=== PATIENT | female | born 1960 | race Caucasian/White ===

== ENCOUNTER 2016-11-14 13:44 | Emergency (ER) | payer OTHER ==
[2016-11-14 14:00] VITALS: BP 139/59
--- NOTE | 2016-11-14 14:06 | EDM.PDOC ---
[id number]: IRREGULAR HEART BEAT Time Seen by Provider: 11/14/16 13:55 Source of Information: Reports: Patient, Provider History Limitations: Reports: No limitations - History of Present Illness INITIAL COMMENTS - FREE TEXT/NARRATIVE: 56-year-old female sent to the ED from [facility]. She was there to see Margarita Forbes called today regarding dyspnea and palpitations. A recent she has been diagnosed with developing hyperthyroidism after many years of taking thyroid supplementation for hypothyroidism. She has had recent assessment by spring maker from [place] indicating that she has hypervascularity to the thyroid gland with enlargement of the thyroid lobes as well as the isthmus suggesting an acute thyroiditis. She has positive levels of antithyroid peroxidase greater than 1000. Thyroid antibodies were also strongly positive. She is therefore no longer on thyroid supplementation. It is seems to be developing more signs symptoms of hyperthyroidism. She's not aware of what her last TSH free T4 free T3 values were. Due to the palpitations she had an ECG done at the clinic which did reveal occasional PAC`s but also suggested ST segment elevation in leads 3 and aVF concerning for possible inferior wall myocardial infarction. Patient has had previous angiogram and failure of ability to stand a single artery stenosis. She therefore underwent cardiac bypass surgery on one vessel in about 2007 or . She came in which vessel. She is no chest pain. She feels mildly short of breath. Aware of palpitations but does not Messerly rare for her. She has a history of paroxysmal atrial fibrillation in the past which is when her thyroid abnormalities were identified. ECG done in the ED reveals ST segment elevation in leads 3 and aVF but there is a diffuse early repolarization pattern throughout suggesting fictitious elevation of leads 3 and aVF. Is also poor R-wave progression T-wave inversion V1 and V2. Rhythm is otherwise sinus and 62 per minute. There is mild ST segment depression in lead aVL. Palpitations recently have been associated with mild lightheadedness feeling suggesting several ectopic beats and row. Symptom Onset Date: 11/11/16 (Patient's for many weeks but worse the last 3 days.) Timing/Duration: Reports: Day(s): ( has been having palpitations off and on for several weeks. Worse the last 3 days. Associated increasing dyspnea on exertion. ), Week(s): Severity: moderate Location, General: Reports: chest - Related Data Allergies/ADRs: Allergies Allergy/AdvReac Type Severity Reaction Status Date / Time celecoxib [From Celebrex] Allergy Diarrhea Verified 11/14/16 14:00 Penicillins Allergy Dizziness Verified 11/14/16 14:00 Home Meds: Home Meds Acetaminophen/HYDROcodone [[place] 325-5 MG] 1 tab PO DAILY 11/14/16 [History] Aspirin 81 mg PO DAILY 11/14/16 [History] Cyclobenzaprine [Flexeril] 5 mg PO DAILY 11/14/16 [History] Fexofenadine [Farrah] 180 mg PO DAILY 11/14/16 [History] Gabapentin [Gralise] 600 mg PO TID 11/14/16 [History] Ibuprofen [Advil] 400 mg PO BID 11/14/16 [History] Metoprolol Tartrate 150 mg PO BID 11/14/16 [History] Montelukast [Singulair] 10 mg PO DAILY 11/14/16 [History] Multivitamin [Multivitamins] 1 tab PO DAILY 11/14/16 [History] Ranitidine HCl [Zantac] 300 mg PO DAILY 11/14/16 [History] Ubidecarenone [Co Q-10] 200 mg PO DAILY 11/14/16 [History] atorvaSTATin [Lipitor] 20 mg PO DAILY 11/14/16 [History] Past Medical History Cardiovascular History: Reports: CAD (Had one very stenotic vessel that was unable to be stented. She therefore underwent open heart surgery with bypass repair of one vessel in about 2007.), High cholesterol, Hypertension, SOB on exertion. Denies: Stents Gastrointestinal History: Reports: GERD Musculoskeletal History: Reports: Back pain, chronic, Osteoarthritis (Gatorade on her lower back and her knees.) Endocrine/Metabolic History: Reports: Diabetes, type II, Hyperthyroidism (Has been hypothyroid for many years but over the last 6 months to a year TSH had been continually dropping and therefore medication was being reduced until she is off medication totally and is now exhibiting signs symptoms of hyperthyroidism or Graves' disease. 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 Anti-peroxidase antibodies were greater than 1000. Thyroid antibodies were greater than 6.1. These were checked 2 weeks ago by endocrinology.), Obesity/BMI 30+ (Borderline. She is not on medication only diet.) - Past Surgical History GI Surgical History: Reports: Appendectomy, Cholecystectomy Neurological Surgical History: Reports: Lumbar spine (Laminectomy and discectomy.) Musculoskeletal Surgical History: Reports: Arthroscopic procedure (Right ankle with removal of broken pieces of cartilage.), Knee replacement (Bilateral) Oncologic Surgical History: Reports: None Social & Family History - Tobacco Use Smoking Status *Q: Former Smoker - Living Situation & Occupation Living situation: Reports: single Occupation: employed [employer] GENERAL - Review of Systems Review Of Systems: See Below Constitutional: Reports: malaise, weakness, fatigue. Denies: fever, chills, weight loss HEENT: Reports: No symptoms Respiratory: Reports: Shortness of Breath. Denies: Wheezing, Pleuritic Chest Pain (On exertion) Cardiovascular: Reports: Blood pressure problem, Dyspnea on exertion, Lightheadedness, Palpitations. Denies: Chest pain, Claudication (Mild hypertension), Orthopnea (Occasionally.) Endocrine: Reports: fatigue GI/Abdominal: Denies: Abdominal pain : Reports: no symptoms Musculoskeletal: Reports: back pain (Previous L. spine surgery for disc disease. ), joint pain (Knees and hips. Also right ankle.) Skin: Reports: no symptoms Neurological: Reports: No Symptoms Psychiatric: Reports: No symptoms Hematologic/Lymphatic: Reports: no symptoms Immunologic: Reports: no symptoms ED EXAM, GENERAL - Physical Exam Exam: See Below Exam Limited By: No limitations General Appearance: alert, WD/WN, no apparent distress Eye Exam: bilateral eye: normal inspection, proptosis (No proptosis appreciated. ) Throat/Mouth: Normal inspection, Normal lips, Normal oropharynx Head: atraumatic, normocephalic Neck: normal inspection, supple, non-tender, full range of motion, thyromegaly ( Palpable both lobes of the fire gland and the isthmus. Both are firm with a rubbery consistency. Mildly enlarged.). No: lymphadenopathy (L), lymphadenopathy (R) Respiratory/Chest: no respiratory distress, lungs clear, normal breath sounds, no accessory muscle use Cardiovascular: normal peripheral pulses, regular rate, rhythm, no edema, no gallop, no murmur, other (Well healed midline sternotomy incision.) Peripheral Pulses: 2+: posterior tibial (L), posterior tibial (R), dorsalis pedis (L), dorsalis pedis (R) GI/Abdominal: normal bowel sounds, soft, non tender, no organomegaly, other ( Large midline laparotomy wound. Fairly she had cholecystectomy and appendectomy done at one setting.) Back Exam: normal inspection, full range of motion, other (Midline lumbar spine surgery scar noted.). No: CVA tenderness (L), CVA tenderness (R) Extremities: normal inspection, normal range of motion, non-tender, no pedal edema, normal capillary refill Neurological: alert, oriented, CN II-XII intact, normal cognition, normal gait, other (No tremor.) Psychiatric: normal affect, normal mood Skin Exam: Warm, Dry, Intact, Normal color, No rash EKG INTERPRETATION EKG Date: 11/14/16 Time: 13:50 Rhythm: NSR Rate (beats/min): 62 [place]: normal P-wave: present QRS: other (Poor R-wave progression from leads V3 to V6.) ST-T: other (There is a diffuse early repolarization pattern. This leads to slight elevation of the ST segment in leads 3 and aVF suggestive of ischemia. There is mild ST segment depression in aVL. There are T-wave inversions in leads V1 V2 again and never nonspecific finding.) QT: prolonged (Mildly prolonged.) Course - Vital Signs Last Recorded V/S: Last Vital Signs Temp 36.6 C 11/14/16 13:54 Pulse 66 11/14/16 13:54 Resp 15 11/14/16 13:54 BP 139/59 L 11/14/16 13:54 Pulse Ox 98 11/14/16 13:54 - Orders/Labs/Meds Labs: Laboratory Tests 11/14/16 11/14/16 11/14/16 Range/Units 14:15 14:15 14:15 WBC 8.36 (3.98-10.04) K/mm3 RBC 4.47 (3.98-5.22) M/mm3 Hgb 12.3 (11.2-15.7) gm/L Hct 38.4 (34.1-44.9) % MCV 85.9 (79.4-94.8) fl MCH 27.5 (25.6-32.2) pg MCHC 32.0 L (32.2-35.5) g/dl RDW Std Deviation 43.7 (36.4-46.3) fL Plt Count 261 (182-369) K/mm3 MPV 9.6 (9.4-12.3) fl Neutrophils % (Manual) 62 H (40-60) % Band Neutrophils % 0 (0-10) % Lymphocytes % (Manual) 31 (20-40) % Atypical Lymphs % 0 % Monocytes % (Manual) 3 (2-10) % Eosinophils % (Manual) 4 (0.7-5.8) % Basophils % (Manual) 0 L (0.1-1.2) Platelet Estimate Adequate RBC Morph Comment Normal Sodium 139 (136-145) mEq/L Potassium 4.2 (3.5-5.1) mEq/L Chloride 104 (98-107) mEq/L Carbon Dioxide 29 (21-32) mEq/L Anion Gap 10.2 (5-15) BUN 23 H (7-18) mg/dL Creatinine 0.9 (0.55-1.02) mg/dL Est Cr Clr Drug Dosing 67.07 mL/min Estimated GFR (MDRD) > 60 (>60) mL/min BUN/Creatinine Ratio 25.6 H (14-18) Glucose 227 H (74-106) mg/dL Calcium 9.1 (8.5-10.1) mg/dL Magnesium 1.9 (1.8-2.4) mg/dl Total Bilirubin 0.4 (0.2-1.0) mg/dL AST 21 (15-37) U/L ALT 41 (14-59) U/L Alkaline Phosphatase 141 H (46-116) U/L CK-MB (CK-2) < 0.5 (0-3.6) ng/ml Troponin I < 0.017 (0.00-0.056) ng/mL B-Natriuretic Peptide 147 H (0-100) pg/mL Total Protein 7.1 (6.4-8.2) g/dl Albumin 3.1 L (3.4-5.0) g/dl Globulin 4.0 gm/dL Albumin/Globulin Ratio 0.8 L (1-2) Free T4 1.24 (0.76-1.46) ng/dL TSH 3rd Generation < 0.007 L (0.358-3.74) uIU/mL - Radiology Interpretation Free Text/Narrative:: 56-year-old female presents to the ED for evaluation of an abnormal ECG. She does not have any chest pain. Concern was ECG done at the clinic revealed or suggested an acute myocardial infarction in the inferior wall. However I my assessment there appears to be an early repolarization pattern diffusely which is leading to fictitious mild elevation of the ST segment in leads 3 and aVF. However there is also slight ST segment depression in aVL and therefore she will require cardiac workup. She has a history of previous stenosis of one of her coronaries that was not amenable to stenting and she required open heart surgery with a single bypass about 2007. Recent echo does not suggest any abnormal wall motion or ischemic areas. She went to the clinic primarily because of increasing dyspnea and palpitations. She has an interesting history of being hypothyroid for many years and over the last year requiring less and less thyroid supplementation and now developing signs and symptoms of hyperthyroidism or Graves' disease. Recent antithyroid antibodies were positive at greater than 6.1 and antithyroid peroxidase antibodies were greater than thousand. She is therefore not on any supplementation. She is awaiting to see how bad hyperthyroidism symptoms developed when asked whether or not she will require therapy for this. Currently she is not on any medication for hyperthyroidism. Plan one view chest x-ray will be done. Routine labs including magnesium and TSH and free T4 free T3 will be done. She does have the occasional PAC I believe only one on ECG done at the clinic and 9 on the ECG obtained in the ER. She has no tremor. And heart rate is actually in the 60s. Note she is on metoprolol 100 mg 3 times a day.. - Re-Assessments/Exams Free Text/Narrative Re-Assessment/Exam: 11/14/16 14:37 chest x-ray done portably appears to be magnified. This suggests moderate cardiomegaly. Mild vascular congestion. 11/14/16 15:15: Labs are back and reveal a normal white count at 8.36 with 60% neutrophils no band cells. Hemoglobin is 12.3 slightly low. Hematocrit is 38.4. Plan is normal 261,000. Chemistry shows a sodium of 139 potassium of 4.2. The weight is 23 glucose was 227. BUN/creatinine ratio is 25.6 indicating a little bit volume depleted. Alk phosphatase 141. BNP was 147 TSH is basically zero is less than 0.007. Free T4 is 1.24 normal in our lab is 0.76-1.76. Free T3 is a send out and is pending. Results will likely be available on Thursday. Troponin was less than 0.017 and CK-MB was less than 0.5. Patient will therefore be discharged to home. Concern is that she is definitely hyperthyroid it will be the expertise of the spring maker as to when she needs intervention to correct hyperthyroid state. Palpitations are likely to worsen over time as she becomes more hyperthyroid. The high-dose metoprolol is probably preventing most of the palpitations or PACs from occurring. Apparently she has not going to be scheduled to be seen until March. Work is supposed to be done the end of November for thyroid function studies. I don't have a comparison TSH at this time. Therefore the free T3 is important. If it is markedly elevated when it returns then intervention is likely required on a more urgent basis. I believe the proposed treatment would be iodine radioablation. Departure - Departure Time of Disposition: 15:31 Disposition: Home, Self-Care 01 Condition: good Clinical Impression: Palpitations, Hyperthyroidism determined by thyroid function test Instructions: Hyperthyroidism, Palpitations, [id number] Referrals: Margarita Forbes [employer]IAL SCIENCE TEACHER [Primary Care Provider] - Forms: ED Department Discharge Additional Instructions: Evaluation in the emergency room today in regards to assessment for abnormal ECG which suggested acute myocardial infarction. Also noted increased palpitations. Therefore complete cardiac workup was carried out and did not reveal any evidence of heart attack. Cardiac markers are completely normal. ECG is skewed by a early repolarization pattern throughout. This makes it look normal in the inferior leads. The only the occasional premature atrial contraction was appreciated while on the monitor. Thyroid function studies did reveal a TSH that is essentially zero it was less than 0.007 which means it's not in not measurable. The free T4 is still within the normal limit range. Free T3 is pending. These results will help endocrinology decide whether or not her thyroid did disease is worsening and he is going to need treatment. Watchful waiting for another 3-4 weeks versus earlier intervention will depend on the free T3 value. Free T3 was sent out and should be available by Thursday next week. Please follow up with Margarita Forbes in this regard. At this time you're free to return to work as per your normal. Continue all current medications as you were before.
--- NOTE | 2016-11-14 15:31 | CR ---
Chest: Portable view of the chest was obtained. Comparison: Previous chest x-ray of 10/03/10. Heart size and mediastinum are within normal limits for portable technique. Sternotomy wires are seen. Lungs are clear. Bony structures are grossly intact. Impression: 1. Nothing acute is identified on portable chest x-ray. Diagnostic code #1
== END 2016-11-14 15:45 | disposition home or self-care (01) ==
LOC: JD.ED 13:44
DX: R00.2 Palpitations (principal); E05.90 Thyrotoxicosis, unspecified without thyrotoxic crisis or storm; I10 Essential (primary) hypertension; I25.810 Atherosclerosis of coronary artery bypass graft(s) without angina pectoris; E78.00 Pure hypercholesterolemia, unspecified; E11.9 Type 2 diabetes mellitus without complications; E66.9 Obesity, unspecified; Z68.30 Body mass index [BMI] 30.0-30.9, adult; Z90.49 Acquired absence of other specified parts of digestive tract; Z98.890 Other specified postprocedural states; Z96.653 Presence of artificial knee joint, bilateral; Z79.82 Long term (current) use of aspirin; Z79.899 Other long term (current) drug therapy; Z88.0 Allergy status to penicillin; Z88.8 Allergy status to other drugs, medicaments and biological substances
CPT/HCPCS: 36415; 71010; 71010-26; 80053; 82553; 83735; 83880; 84439; 84443; 84481; 84484; 85025; 93005; 99284; 99285-25

== ENCOUNTER 2017-02-02 06:19 | Emergency (ER) | payer OTHER ==
[2017-02-02] MEDS ORDERED: Ondansetron 4 MG/2 ML SDV IVPUSH ONE (07:07)
[2017-02-02] MEDS ORDERED: HYDROmorphone 1 MG/ML Syringe IVPUSH ONE (07:07)
[2017-02-02] MEDS ORDERED: Sodium Chloride 0.9% 1,000 ML IV SCH ×2 (07:15→08:36)
[2017-02-02] MEDS: Sodium Chloride 0.9% 10 ML Syringe FLUSH PRN ×2 (07:24→12:01)
[2017-02-02 08:02] VITALS: BP 109/95
--- NOTE | 2017-02-02 08:02 | EDM.PDOC ---
ED HPI GENERAL MEDICAL PROBLEM - General Chief Complaint: Flank Pain Stated Complaint: LEFT SIDE PAIN Time Seen by Provider: 02/02/17 07:00 Source of Information: Reports: Patient, RN Notes Reviewed - History of Present Illness INITIAL COMMENTS - FREE TEXT/NARRATIVE: 56-year-old lady comes in with left lower abdominal pain. She had onset of this discomfort last evening. The pain is much worse this morning. Is primarily in the left lower abdomen without radiation. Pain is worse with motion. She did have a large BM last evening which was normal when the discomfort started. He has had no vomiting or diarrhea. She does not feel nauseated at this time. No chest pain or difficulty breathing. No apparent fever or chills. No voiding symptomatology. History of prior appendectomy. Left Flank Pain Score (Numeric/FACES): 9 - Related Data Allergies Allergy/AdvReac Type Severity Reaction Status Date / Time celecoxib [From Celebrex] Allergy Diarrhea Verified 11/14/16 14:00 Penicillins Allergy Dizziness Verified 11/14/16 14:00 Home Meds: Home Meds Aspirin 81 mg PO DAILY 11/14/16 [History] Fexofenadine [Farrah] 180 mg PO DAILY PRN 11/14/16 [History] Gabapentin [Gralise] 600 mg PO TID 11/14/16 [History] Ibuprofen [Advil] 400 mg PO BID 11/14/16 [History] Metoprolol Tartrate 150 mg PO BID 11/14/16 [History] Montelukast [Singulair] 10 mg PO DAILY PRN 11/14/16 [History] Ranitidine HCl [Zantac] 300 mg PO DAILY PRN 11/14/16 [History] atorvaSTATin [Lipitor] 20 mg PO DAILY 11/14/16 [History] Hydrocodone/Acetaminophen [[place] 5-325 Tablet] 1 each PO Q6HR PRN #14 tablet [Rx] Levofloxacin [Levaquin] 500 mg PO Q24H #7 tablet 02/02/17 [Rx] Ondansetron [Zofran ODT] 4 mg PO Q8H PRN #7 tab.dis 02/02/17 [Rx] atorvaSTATin [Lipitor] 20 mg PO BEDTIME 02/02/17 [History] Past Medical History HEENT History: Reports: Impaired Vision Cardiovascular History: Reports: CAD, High Cholesterol, Hypertension, SOB on Exertion Gastrointestinal History: Reports: GERD Musculoskeletal History: Reports: Back Pain, Chronic, Osteoarthritis Endocrine/Metabolic History: Reports: Diabetes, Type II, Hyperthyroidism, Obesity/BMI 30+ - Past Surgical History Cardiovascular Surgical History: Reports: Coronary Artery Bypass GI Surgical History: Reports: Appendectomy, Cholecystectomy Neurological Surgical History: Reports: Lumbar Spine Musculoskeletal Surgical History: Reports: Arthroscopic Procedure, Knee Replacement Oncologic Surgical History: Reports: None Social & Family History - Family History Cardiac: Reports: Heart Valve Replacement, [place] - Tobacco Use Smoking Status *Q: Never Smoker Second Hand Smoke Exposure: No - Caffeine Use Caffeine Use: Reports: None - Recreational Drug Use Recreational Drug Use: No - Living Situation & Occupation Living situation: Reports: Single Occupation: Employed ED ROS GENERAL - Review of Systems Review Of Systems: See Below Constitutional: Denies: Fever, Chills, Diaphoresis HEENT: Reports: No Symptoms Respiratory: Denies: Shortness of Breath Cardiovascular: Denies: Chest Pain GI/Abdominal: Reports: Abdominal Pain. Denies: Constipation, Diarrhea, Hematochezia, Melena, Nausea, Vomiting : Reports: No Symptoms Musculoskeletal: Reports: No Symptoms Skin: Reports: No Symptoms Neurological: Reports: No Symptoms ED EXAM, GI/ABD - Physical Exam Exam: See Below General Appearance: Alert, Mild Distress Eyes: Bilateral: Normal Appearance, EOMI Throat/Mouth: Normal Inspection, Normal Oropharynx Head: Atraumatic. No: Facial Swelling Neck: Supple, Full Range of Motion Respiratory/Chest: No Respiratory Distress, Lungs Clear, Normal Breath Sounds Cardiovascular: Regular Rate, Rhythm GI/Abdominal Exam: Soft, Tender (Moderate localized tenderness left lower abdomen) Back Exam: No: CVA Tenderness (L), CVA Tenderness (R), Paraspinal Tenderness Extremities: Normal Inspection. No: Leg Pain Neurological: Alert, Oriented, No Motor/Sensory Deficits Skin Exam: Warm, Dry, Normal Color Course - Vital Signs Last Recorded V/S: Last Vital Signs Temp 97 F 02/02/17 06:23 Pulse 60 02/02/17 08:01 Resp 26 H 02/02/17 06:23 BP 109/95 H 02/02/17 08:01 Pulse Ox 87 L 02/02/17 08:01 - Orders/Labs/Meds Orders: Active Orders 24 hr Category Date Time Status Peripheral IV Care [RC] . DIRECTED Care 02/02/17 07:08 Active Peripheral IV Insertion Adult [OM.PC] Stat Oth 02/02/17 07:07 Ordered Labs: Laboratory Tests 02/02/17 02/02/17 02/02/17 Range/Units 06:30 06:30 06:30 WBC 12.78 H (3.98-10.04) K/mm3 RBC 4.88 (3.98-5.22) M/mm3 Hgb 13.6 (11.2-15.7) gm/L Hct 41.7 (34.1-44.9) % MCV 85.5 (79.4-94.8) fl MCH 27.9 (25.6-32.2) pg MCHC 32.6 (32.2-35.5) g/dl RDW Std Deviation 43.0 (36.4-46.3) fL Plt Count 290 (182-369) K/mm3 MPV 10.2 (9.4-12.3) fl Neut % (Auto) 76.9 H (34.0-71.1) % Lymph % (Auto) 13.1 L (19.3-51.7) % [place] % (Auto) 6.8 (4.7-12.5) % Eos % (Auto) 2.8 (0.7-5.8) Baso % (Auto) 0.2 (0.1-1.2) % Neut # (Auto) 9.83 H (1.56-6.13) K/mm3 Lymph # (Auto) 1.67 (1.18-3.74) K/mm3 [place] # (Auto) 0.87 H (0.24-0.36) K/mm3 Eos # (Auto) 0.36 (0.04-0.36) K/mm3 Baso # (Auto) 0.02 (0.01-0.08) K/mm3 Sodium 140 (136-145) mEq/L Potassium 4.3 (3.5-5.1) mEq/L Chloride 104 (98-107) mEq/L Carbon Dioxide 28 (21-32) mEq/L Anion Gap 12.3 (5-15) BUN 20 H (7-18) mg/dL Creatinine 0.9 (0.55-1.02) mg/dL Est Cr Clr Drug Dosing 69.57 mL/min Estimated GFR (MDRD) > 60 (>60) mL/min BUN/Creatinine Ratio 22.2 H (14-18) Glucose 125 H (74-106) mg/dL Calcium 9.6 (8.5-10.1) mg/dL Total Bilirubin 0.5 (0.2-1.0) mg/dL AST 18 (15-37) U/L ALT 25 (14-59) U/L Alkaline Phosphatase 154 H (46-116) U/L C-Reactive Protein 1.2 H* (<1.0) mg/dL Total Protein 7.8 (6.4-8.2) g/dl Albumin 3.3 L (3.4-5.0) g/dl Globulin 4.5 gm/dL Albumin/Globulin Ratio 0.7 L (1-2) Lipase 178 (73-393) U/L Urine Color (Yellow) Urine Appearance (Clear) Urine pH (5.0-8.0) Ur Specific [place] (1.005-1.030) Urine Protein (Negative) Urine Glucose (UA) (Negative) Urine Ketones (Negative) Urine Occult Blood (Negative) Urine Nitrite (Negative) Urine Bilirubin (Negative) Urine Urobilinogen (0.2-1.0) Ur Leukocyte Esterase (Negative) Urine RBC (0-5) /hpf Urine WBC (0-5) /hpf Ur Epithelial Cells (0-5) /hpf Urine Bacteria (FEW) /hpf Urine Mucus (FEW) /hpf 02/02/17 Range/Units 08:10 WBC (3.98-10.04) K/mm3 RBC (3.98-5.22) M/mm3 Hgb (11.2-15.7) gm/L Hct (34.1-44.9) % MCV (79.4-94.8) fl MCH (25.6-32.2) pg MCHC (32.2-35.5) g/dl RDW Std Deviation (36.4-46.3) fL Plt Count (182-369) K/mm3 MPV (9.4-12.3) fl Neut % (Auto) (34.0-71.1) % Lymph % (Auto) (19.3-51.7) % [place] % (Auto) (4.7-12.5) % Eos % (Auto) (0.7-5.8) Baso % (Auto) (0.1-1.2) % Neut # (Auto) (1.56-6.13) K/mm3 Lymph # (Auto) (1.18-3.74) K/mm3 [place] # (Auto) (0.24-0.36) K/mm3 Eos # (Auto) (0.04-0.36) K/mm3 Baso # (Auto) (0.01-0.08) K/mm3 Sodium (136-145) mEq/L Potassium (3.5-5.1) mEq/L Chloride (98-107) mEq/L Carbon Dioxide (21-32) mEq/L Anion Gap (5-15) BUN (7-18) mg/dL Creatinine (0.55-1.02) mg/dL Est Cr Clr Drug Dosing mL/min Estimated GFR (MDRD) (>60) mL/min BUN/Creatinine Ratio (14-18) Glucose (74-106) mg/dL Calcium (8.5-10.1) mg/dL Total Bilirubin (0.2-1.0) mg/dL AST (15-37) U/L ALT (14-59) U/L Alkaline Phosphatase (46-116) U/L C-Reactive Protein (<1.0) mg/dL Total Protein (6.4-8.2) g/dl Albumin (3.4-5.0) g/dl Globulin gm/dL Albumin/Globulin Ratio (1-2) Lipase (73-393) U/L Urine Color Yellow (Yellow) Urine Appearance Clear (Clear) Urine pH 7.0 (5.0-8.0) Ur Specific [place] 1.020 (1.005-1.030) Urine Protein Negative (Negative) Urine Glucose (UA) Negative (Negative) Urine Ketones Negative (Negative) Urine Occult Blood Trace-intact H (Negative) Urine Nitrite Negative (Negative) Urine Bilirubin Negative (Negative) Urine Urobilinogen 0.2 (0.2-1.0) Ur Leukocyte Esterase Negative (Negative) Urine RBC 0-5 (0-5) /hpf Urine WBC 0-5 (0-5) /hpf Ur Epithelial Cells 0-5 (0-5) /hpf Urine Bacteria Few (FEW) /hpf Urine Mucus Not seen (FEW) /hpf Meds: Medications Discontinued Medications Generic Name Dose Route Start Last Admin Trade Name [place] PRN Reason Stop Dose Admin Diatrizoate Meglum/Diatrizoate Sod 120 ml 02/02/17 08:16 02/02/17 09:18 Gastrografin 37% PO 02/02/17 08:17 90 ml ONETIME ONE Administration Hydromorphone HCl 0.5 mg 02/02/17 07:07 02/02/17 07:20 Dilaudid IVPUSH 02/02/17 07:08 0.5 mg ONETIME ONE Administration Hydromorphone HCl 0.5 mg 02/02/17 09:30 02/02/17 09:34 Dilaudid IVPUSH 02/02/17 09:31 0.5 mg ONETIME ONE Administration Hydromorphone HCl 0.5 mg 02/02/17 10:10 02/02/17 10:22 Dilaudid IVPUSH 02/02/17 10:11 0.5 mg ONETIME ONE Administration Sodium Chloride 1,000 mls @ 999 mls/hr 02/02/17 07:15 02/02/17 07:22 Normal Saline IV 999 mls/hr ONETIME BRIANNA Administration Sodium Chloride Confirm 02/02/17 08:36 02/02/17 09:36 Normal Saline Administered 02/02/17 08:37 Not Given Dose 1,000 mls @ as directed .ROUTE .STK-MED ONE Sodium Chloride 1,000 mls @ 150 mls/hr 02/02/17 08:36 02/02/17 08:36 Normal Saline IV 150 mls/hr ASDIRECTED BRIANNA Administration Levofloxacin/Dextrose 750 mg/ 150 mls @ 100 mls/hr 02/02/17 10:10 02/02/17 10 :24 Premix IV 02/02/17 11:39 100 mls/hr ONETIME ONE Administration Iopamidol 150 ml 02/02/17 08:16 02/02/17 09:19 Isovue-300 (61%) IVPUSH 02/02/17 08:17 125 ml ONETIME ONE Administration Ketorolac Tromethamine 30 mg 02/02/17 11:45 02/02/17 12:00 Toradol IVPUSH 30 mg ONETIME BRIANNA Administration Ondansetron HCl 4 mg 02/02/17 07:07 02/02/17 07:22 Zofran IVPUSH 02/02/17 07:08 4 mg ONETIME ONE Administration Sodium Chloride 10 ml 02/02/17 07:07 02/02/17 12:01 Saline Flush FLUSH 10 ml ASDIRECTED PRN Administration Keep Vein Open Sodium Chloride 10 ml 02/02/17 08:16 02/02/17 09:20 Saline Flush FLUSH 10 ml ONETIME PRN Administration IV FLUSH - Re-Assessments/Exams Free Text/Narrative Re-Assessment/Exam: 02/02/17 08:04 White blood count mildly elevated at over 12,000. She feels better after 0.5 mg Dilaudid IV but still has pain left lower abdomen and still quite tender left lower abdomen. Concerned about early diverticulitis. Will CT abdomen to rule this in or out. Departure - Departure Time of Disposition: 11:25 Disposition: Home, Self-Care 01 Condition: Fair Clinical Impression: Colitis - Discharge Information Prescriptions: Hydrocodone/Acetaminophen [[place] 5-325 Tablet] 1 each PO Q6HR PRN #14 tablet PRN Reason: Pain Levofloxacin [Levaquin] 500 mg PO Q24H #7 tablet Ondansetron [Zofran ODT] 4 mg PO Q8H PRN #7 tab.dis PRN Reason: Nausea/Vomiting Instructions: Colitis Referrals: Margarita Forbes NP [Primary Care Provider] - Forms: ED Department Discharge, ED Return to Work/School Form Additional Instructions: Your CAT scan today shows inflammation of a segment of your colon compatible with colitis. We have given you your first dose of antibiotic IV. Continue the Levaquin with your next dose tomorrow and continue that daily until gone. You may take Tylenol for mild to moderate discomfort or the hydrocodone pain pill if needed for more severe pain. Do not drive or work when taking hydrocodone. Zofran if needed for nausea or vomiting. Is recommended you not work until Thursday. It is also recommended you follow-up with your regular medical provider later this week. Call clinic for appointment. Return to ED as needed if symptoms worsening in any way - My Orders Last 24 Hours: My Active Orders 02/02/17 07:07 Peripheral IV Insertion Adult [OM.PC] Stat 02/02/17 07:08 Peripheral IV Care [RC] . DIRECTED - Assessment/Plan Last 24 Hours: My Active Orders 02/02/17 07:07 Peripheral IV Insertion Adult [OM.PC] Stat 02/02/17 07:08 Peripheral IV Care [RC] . DIRECTED
[2017-02-02] MEDS ORDERED: Diatrizoate Meglumine/Diatrizoate Sodium 37% 120 ML Bottle PO ONE (08:16)
[2017-02-02] MEDS ORDERED: Iopamidol 612 MG/ML 150 ML Bottle IVPUSH ONE (08:16)
[2017-02-02] MEDS ORDERED: Sodium Chloride 0.9% 10 ML Syringe FLUSH PRN (08:16)
[2017-02-02] MEDS ORDERED: Sodium Chloride 0.9% 1,000 ML ONE (08:36)
[2017-02-02] MEDS ORDERED: HYDROmorphone 0.5 MG/0.5 ML Syringe IVPUSH ONE ×2 (09:30→10:10)
--- NOTE | 2017-02-02 09:43 | CT ---
CT abdomen and pelvis Technique: Multiple axial sections were obtained from above the dome of the diaphragm inferiorly through the pubic symphysis. Intravenous and oral contrast was utilized. Delayed images were obtained through the bladder. Comparison: No previous CT abdomen or pelvis exam. Findings: Focal bowel wall thickening is seen within the proximal descending colon. Hazy inflammatory change is seen around this finding. No diverticuli are seen in this area of the colon with certainty. Visualized lung bases are clear. Liver shows no focal parenchymal abnormality. Surgical clips are seen from prior cholecystectomy. Spleen appears within normal limits. Adrenal glands show no nodule. Pancreas is within normal limits. Aorta shows no aneurysmal dilatation. No retroperitoneal adenopathy or mesenteric abnormalities are seen. Appendix is seen and appears normal in size. No pelvic mass or adenopathy is seen. No free fluid is identified. Impression: 1. Short area of bowel wall thickening noted within the proximal descending colon with minimal surrounding inflammatory change. Findings most likely due to a focal nonspecific colitis although difficult to completely exclude neoplasm given its short segment length. Endoscopy could be considered to further evaluate. 2. Previous cholecystectomy. 3. No additional abnormality is seen on CT study of the abdomen and pelvis. Diagnostic code #3
[2017-02-02] MEDS ORDERED: Levofloxacin/Dextrose 5%-Water 750 MG in Premix Bag 1 BAG IV ONE (10:10)
[2017-02-02] MEDS ORDERED: Ketorolac 30 MG/ML SDV IVPUSH SCH (11:45)
== END 2017-02-02 13:00 | disposition home or self-care (01) ==
LOC: JD.ED 06:19
DX: K52.9 Noninfective gastroenteritis and colitis, unspecified (principal); I25.10 Atherosclerotic heart disease of native coronary artery without angina pectoris; E78.00 Pure hypercholesterolemia, unspecified; I10 Essential (primary) hypertension; K21.9 Gastro-esophageal reflux disease without esophagitis; E11.9 Type 2 diabetes mellitus without complications; E05.90 Thyrotoxicosis, unspecified without thyrotoxic crisis or storm; E66.9 Obesity, unspecified; Z95.1 Presence of aortocoronary bypass graft; Z88.0 Allergy status to penicillin; Z88.8 Allergy status to other drugs, medicaments and biological substances; Z79.82 Long term (current) use of aspirin; Z79.899 Other long term (current) drug therapy; Z90.49 Acquired absence of other specified parts of digestive tract; Z96.659 Presence of unspecified artificial knee joint
CPT/HCPCS: 36415; 74177; 80053; 81001; 83690; 85025; 86140; 96361; 96365; 96366; 96375; 96376; 99284; J1170; J1885; J1956; J2405; J7040; J7050; Q9963; Q9967

== ENCOUNTER 2018-11-30 02:15 | Emergency (ER) | payer OTHER ==
[2018-11-30 02:27] VITALS: BP 135/78
[2018-11-30] MEDS ORDERED: Sodium Chloride 0.9% 1,000 ML IV ONE (02:57)
[2018-11-30] MEDS ORDERED: Ondansetron 4 MG/2 ML SDV IVPUSH ONE (02:57)
[2018-11-30] MEDS ORDERED: HYDROmorphone 1 MG/ML Syringe IVPUSH ONE (02:57)
[2018-11-30] MEDS ORDERED: Dicyclomine 20 MG/2 ML SDV IM ONE (03:02)
--- NOTE | 2018-11-30 03:04 | EDM.PDOC ---
ED HPI GENERAL MEDICAL PROBLEM - General Chief Complaint: Abdominal Pain Stated Complaint: STOMACH PAIN RECENT SURGERY AT [facility] Time Seen by Provider: 11/30/18 02:41 Source of Information: Reports: Patient, RN Notes Reviewed History Limitations: Reports: No Limitations - History of Present Illness INITIAL COMMENTS - FREE TEXT/NARRATIVE: The patient states that she developed generalized crampy abdominal pain and bloody diarrhea a little over 24 hours ago, the evening of 11/28/2018. She has vomited once. No recent fever. No urinary symptoms. She states that she was seen at the [facility] yesterday, where blood work and a CT scan were performed. She was diagnosed with colitis, and prescribed both ciprofloxacin and metronidazole. She has been taking these medicines as prescribed, without relief of symptoms. She is concerned that she may be dehydrated. The patient states that she has had similar symptoms once or twice in the past, including a history of Clostridium difficile about 10 years ago. The patient's PCP is Margarita Forbes. Her orthopedic surgeon is Dr. Fausto Guerra. Bilateral Lower Abdomen Pain Score (Numeric/FACES): 10 - Related Data Allergies Allergy/AdvReac Type Severity Reaction Status Date / Time celecoxib [From Celebrex] Allergy Diarrhea Verified 11/30/18 03:47 Penicillins Allergy Dizziness Verified 11/30/18 03:47 Home Meds: Home Meds Gabapentin [Gralise] 600 mg PO QID 11/14/16 [History] Metoprolol Tartrate 100 mg PO BID 11/14/16 [History] atorvaSTATin [Lipitor] 20 mg PO DAILY 11/14/16 [History] Aspirin 81 mg PO DAILY 11/30/18 [History] Ciprofloxacin HCl [Cipro] 500 mg PO BID 11/30/18 [History] Dicyclomine [Bentyl] 1 tab PO Q6H PRN #20 tablet 11/30/18 [Rx] Gluc HCl/Csa/Pham Hy/Hyalur Ac [Glucosamine Chondroitin] 1 cap PO DAILY [History] Levothyroxine 175 mcg PO DAILY 11/30/18 [History] metFORMIN [Glucophage XR] 500 mg PO BID 11/30/18 [History] metroNIDAZOLE [Metronidazole] 500 mg PO TID 11/30/18 [History] Past Medical History HEENT History: Reports: Impaired Vision Other HEENT History: Wears glasses Cardiovascular History: Reports: CAD, High Cholesterol, Hypertension, [place] (January 2009) Gastrointestinal History: Reports: GERD, Hiatal Hernia 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: Musculoskeletal History: Reports: Back Pain, Chronic, Osteoarthritis Endocrine/Metabolic History: Reports: Diabetes, Type II, Hypothyroidism, Obesity /BMI 30+ - Infectious Disease History Infectious Disease History: Reports: C-Difficile - Past Surgical History Cardiovascular Surgical History: Reports: Coronary Artery Bypass (x 1 vessel, 2009) GI Surgical History: Reports: Appendectomy, Cholecystectomy (in her 20's), EGD ( x 1) Neurological Surgical History: Reports: Lumbar Spine (L4-L5 discectomy) Musculoskeletal Surgical History: Reports: Arthroscopic Procedure (left knee), Knee Replacement (bilateral), Other (See Below) (Right ankle fusion 11/10/2018) Social & Family History - Family History Cardiac: Reports: Heart Valve Replacement, [place] - Tobacco Use Smoking Status *Q: Former Smoker Years of Tobacco use: 5 Packs/Tins Daily: 1 Month/Year Tobacco Last Used: Quit 1984 - Caffeine Use Caffeine Use: Reports: None - Alcohol Use Alcohol Use History: Yes Alcohol Use Frequency: Rarely - Recreational Drug Use Recreational Drug Use: Yes Drug Use in Last 12 Months: No Recreational Drug Type: Reports: Marijuana/Hashish (last smoked as a teenager) - Living Situation & Occupation Living situation: Reports: , Alone Occupation: Employed ([employer]) ED ROS GENERAL - Review of Systems Review Of Systems: ROS reveals no pertinent complaints other than HPI. ED EXAM, GI/ABD - Physical Exam Exam: See Below Exam Limited By: No Limitations General Appearance: Alert, WD/WN, Mild Distress (appears uncomfortable - mostly from attempts at IV access) Eyes: Bilateral: Normal Appearance, EOMI Ears: Normal External Exam, Hearing Grossly Normal Nose: Normal Inspection Throat/Mouth: Normal Inspection, Normal Lips, Normal Voice, No Airway Compromise Head: Atraumatic, Normocephalic Neck: Normal Inspection, Full Range of Motion Respiratory/Chest: No Respiratory Distress, Lungs Clear, Normal Breath Sounds, No Accessory Muscle Use Cardiovascular: Normal Peripheral Pulses, Regular Rate, Rhythm, No Gallop, No JVD, No Murmur, No Rub GI/Abdominal Exam: Normal Bowel Sounds, Soft, Non-Tender, No Organomegaly, No Distention, No Abnormal Bruit, No Mass, Other (Obese) (Female) Exam: Deferred Rectal (Female) Exam: Deferred Back Exam: Normal Inspection, Full Range of Motion, NT Extremities: Normal Capillary Refill, Other (CAM walking boot on right) Neurological: Alert, Oriented, Normal Cognition, No Motor/Sensory Deficits Psychiatric: Normal Affect Skin Exam: Warm, Dry, Intact, Normal Color, No Rash Course - Vital Signs Last Recorded V/S: Last Vital Signs Temp 35.5 C 11/30/18 02:24 Pulse 82 11/30/18 02:24 Resp 20 11/30/18 02:24 BP 135/78 11/30/18 02:24 Pulse Ox 95 11/30/18 02:24 - Orders/Labs/Meds Labs: Laboratory Tests 11/30/18 11/30/18 Range/Units 03:25 03:25 WBC 14.85 H (3.98-10.04) K/mm3 RBC 4.82 (3.98-5.22) M/mm3 Hgb 13.8 (11.2-15.7) gm/L Hct 41.6 (34.1-44.9) % MCV 86.3 (79.4-94.8) fl MCH 28.6 (25.6-32.2) pg MCHC 33.2 (32.2-35.5) g/dl RDW Std Deviation 43.4 (36.4-46.3) fL Plt Count 278 (182-369) K/mm3 MPV 10.3 (9.4-12.3) fl Neutrophils % (Manual) 86 H (40-60) % Band Neutrophils % 0 (0-10) % Lymphocytes % (Manual) 12 L (20-40) % Atypical Lymphs % 0 % Monocytes % (Manual) 2 (2-10) % Eosinophils % (Manual) 0 L (0.7-5.8) % Basophils % (Manual) 0 L (0.1-1.2) Platelet Estimate Adequate RBC Morph Comment Normal Sodium 135 L (136-145) mEq/L Potassium 3.7 (3.5-5.1) mEq/L Chloride 100 (98-107) mEq/L Carbon Dioxide 25 (21-32) mEq/L Anion Gap 13.7 (5-15) BUN 18 (7-18) mg/dL Creatinine 1.0 (0.55-1.02) mg/dL Est Cr Clr Drug Dosing 60.00 mL/min Estimated GFR (MDRD) 57 (>60) mL/min BUN/Creatinine Ratio 18.0 (14-18) Glucose 152 H (74-106) mg/dL Calcium 9.5 (8.5-10.1) mg/dL Magnesium 1.6 L (1.8-2.4) mg/dl Total Bilirubin 0.9 (0.2-1.0) mg/dL AST 16 (15-37) U/L ALT 23 (14-59) U/L Alkaline Phosphatase 121 H (46-116) U/L Total Protein 7.4 (6.4-8.2) g/dl Albumin 3.1 L (3.4-5.0) g/dl Globulin 4.3 gm/dL Albumin/Globulin Ratio 0.7 L (1-2) Meds: Medications Discontinued Medications Generic Name Dose Route Start Last Admin Trade Name Freq PRN Reason Stop Dose Admin Dicyclomine HCl 20 mg 11/30/18 03:02 11/30/18 03:06 Bentyl IM 11/30/18 03:03 20 mg ONETIME ONE Administration Hydromorphone HCl 1 mg 11/30/18 02:57 11/30/18 03:03 Dilaudid IVPUSH 11/30/18 02:58 1 mg ONETIME ONE Administration Sodium Chloride 1,000 mls @ 999 mls/hr 11/30/18 02:57 11/30/18 03:03 Normal Saline IV 11/30/18 03:57 999 mls/hr ONETIME ONE Administration Magnesium Sulfate 2 gm/ Premix 50 mls @ 50 mls/hr 11/30/18 03:54 11/30/18 04: 02 IV 11/30/18 04:53 50 mls/hr ONETIME ONE Administration Ondansetron HCl 4 mg 11/30/18 02:57 11/30/18 03:03 Zofran IVPUSH 11/30/18 02:58 4 mg ONETIME ONE Administration - Re-Assessments/Exams Free Text/Narrative Re-Assessment/Exam: 11/30/18 02:59 Although we do not have access to the CT images that the patient had performed at [place] yesterday, I am going to trust the when she tells me that it was interpreted as colitis. I am not going to repeat a CT scan. I have ordered blood work, along with Dilaudid, Zofran, IM Bentyl, and IV fluid. If she is able to provide a stool sample, I will order stool studies. 11/30/18 03:55 The patient's magnesium level has returned low at 1.6. I have ordered a 2 g Mg- rider. 11/30/18 04:20 The patient's CBC is remarkable for WBC count elevated at 14.85, with 0% bandemia. The remainder of the CBC is unremarkable. The patient's CMP is remarkable for blood glucose modestly elevated at 152, and is otherwise unremarkable. The patient states that she is feeling a lot better, following IV Dilaudid, IV Zofran, and IM Bentyl. She has not been able to provide a stool sample. Once the Mg-rider has finished infusing, she may safely be discharged home. 11/30/18 05:11 The patient's magnesium has finished infusing. I will discharge her home with a prescription for Advil. She may take [id number] loperamide for diarrhea. I am recommending that she withhold the antibiotics until a diagnosis of the cause of her colitis has been made. Departure - Departure Time of Disposition: 05:12 Disposition: Home, Self-Care 01 Condition: Good Clinical Impression: Colitis, Abdominal cramps - Discharge Information *PRESCRIPTION DRUG MONITORING PROGRAM REVIEWED*: Not Applicable *COPY OF PRESCRIPTION DRUG MONITORING REPORT IN PATIENT BLANCHE: Not Applicable Referrals: Margarita Forbes NP [Primary Care Provider] - Forms: ED Department Discharge Additional Instructions: You were seen in the emergency room for generalized abdominal cramps and vomiting, after being diagnosed with colitis yesterday. Workup in the ER included blood work, which found your magnesium level to be low. Your magnesium was replaced through an IV. There are many different types of colitis. Appropriate treatment requires an appropriate diagnosis of which type of colitis you have. You should provide a stool sample to your PCP as soon as possible. Until a diagnosis of which type of colitis you have, we recommend that you not take the antibiotics. You may take [id number] loperamide (Imodium) as directed on the label to treat your diarrhea. Stay adequately hydrated. Avoid juice and milk. A prescription for the anti-spasm medicine Bentyl has been sent to the [facility], located in the [place] [facility] store. Take one tablet of Bentyl up to every 6 hours, as needed for abdominal cramps. If any other problems, please do not hesitate to return to the ER.
[2018-11-30] MEDS ORDERED: Magnesium Sulfate/Water 2 GM in Premix Bag 1 BAG IV ONE (03:54)
== END 2018-11-30 05:28 | disposition home or self-care (01) ==
LOC: JD.ED 02:15
DX: K52.9 Noninfective gastroenteritis and colitis, unspecified (principal); E11.9 Type 2 diabetes mellitus without complications; I25.10 Atherosclerotic heart disease of native coronary artery without angina pectoris; E78.00 Pure hypercholesterolemia, unspecified; I10 Essential (primary) hypertension; I25.2 Old myocardial infarction; K21.9 Gastro-esophageal reflux disease without esophagitis; E03.9 Hypothyroidism, unspecified; Z95.1 Presence of aortocoronary bypass graft; Z88.0 Allergy status to penicillin; Z88.8 Allergy status to other drugs, medicaments and biological substances; Z79.899 Other long term (current) drug therapy; Z87.891 Personal history of nicotine dependence; Z79.84 Long term (current) use of oral hypoglycemic drugs; Z79.82 Long term (current) use of aspirin
CPT/HCPCS: 36415; 80053; 83735; 85007; 85027; 96361; 96365; 96372; 96375; 99284; J0500; J1170; J2405; J3475; J7040

== ENCOUNTER 2024-03-08 11:53 | Emergency (ER) | payer OTHER ==
[2024-03-08] MEDS: Sodium Chloride 0.9% 45 ML IV SCH (12:14)
[2024-03-08] MEDS: Iopamidol 755 Mg/ML 100 ML Bottle IVPUSH ONE (12:14)
[2024-03-08 12:26] LABS: BASOPHILS ABSOLUTE AUTO 0.1 K/mm3 (0.0-0.2); BASOPHILS PERCENT AUTO 0.6 % (0.0-1.0); EOSINOPHILS ABSOLUTE AUTO 0.4 K/mm3 (0.0-0.4); EOSINOPHILS PERCENT AUTO 5.1 % (0.0-6.0); HEMATOCRIT 47.3 % (37.0-47.0); HEMOGLOBIN 15.3 gm/dl (12.0-16.0); IMMATURE GRAN ABSOLUTE AUTO 0.02 K/mm3 (0.00-0.05); IMMATURE GRAN PERCENT AUTO 0.2 % (0.0-0.4); LYMPHOCYTES ABSOLUTE AUTO 2.1 K/mm3 (1.0-4.8); LYMPHOCYTES PERCENT AUTO 26.2 % (24.0-44.0); MEAN CORPUSCULAR HGB CONC 32.3 g/dl (32.0-36.0); MEAN CORPUSCULAR VOLUME 89.6 fl (83.0-99.0); MEAN PLATELET VOLUME 9.8 fl (9.4-12.3); MONOCYTES ABSOLUTE AUTO 0.8 K/mm3 (0.0-0.8); MONOCYTES PERCENT AUTO 9.5 % (0.0-8.0); NEUTROPHILS ABSOLUTE AUTO 4.7 K/mm3 (1.8-7.7); NEUTROPHILS PERCENT AUTO 58.4 % (41.0-71.0); PLATELET COUNT,PLT 264 K/mm3 (150-400); RED BLOOD CELL COUNT 5.28 M/mm3 (4.10-5.30)
[2024-03-08 12:50] LABS: A/G RATIO 0.8 (1-2); ALBUMIN 3.7 g/dl (3.4-5.0); ANION GAP 10.3 (5-15); BILIRUBIN TOTAL 0.4 mg/dL (0.2-1.0); CALCIUM 9.7 mg/dL (8.5-10.1); CREATININE 0.8 mg/dL (0.55-1.02); EST CRCL DRUG DOSING (CG) 70.38 mL/min; POTASSIUM,K 4.3 mEq/L (3.5-5.1); PROTEIN TOTAL,TP 8.2 g/dl (6.4-8.2)
[2024-03-08 12:57] LABS: INR 0.96; PROTHROMBIN TIME 10.2 SECONDS (9.7-12.0)
[2024-03-08 12:58] LABS: PTT,PARTIAL THROMBOPLSTIN TIME 29.3 SECONDS (21.7-31.4)
[2024-03-08 16:07] VITALS: BP 147/92; PULSE 57
== END 2024-03-08 15:55 | disposition home or self-care (01) ==
LOC: JD.ED 11:53
DX: G45.9 Transient cerebral ischemic attack, unspecified (principal); I10 Essential (primary) hypertension; I25.10 Atherosclerotic heart disease of native coronary artery without angina pectoris; I25.2 Old myocardial infarction; E11.9 Type 2 diabetes mellitus without complications; E03.9 Hypothyroidism, unspecified; E66.9 Obesity, unspecified; Z95.1 Presence of aortocoronary bypass graft; Z90.49 Acquired absence of other specified parts of digestive tract; Z79.2 Long term (current) use of antibiotics; Z79.84 Long term (current) use of oral hypoglycemic drugs; Z79.890 Hormone replacement therapy; Z79.82 Long term (current) use of aspirin; Z79.899 Other long term (current) drug therapy; Z88.0 Allergy status to penicillin; Z88.8 Allergy status to other drugs, medicaments and biological substances; Z88.6 Allergy status to analgesic agent; Z68.42 Body mass index [BMI] 45.0-49.9, adult
CPT/HCPCS: 36415; 70450; 70496; 70498; 80053; 82947; 84484; 85025; 85610; 85730; 93005; 99285; J3490; Q9967; 93010

== ENCOUNTER 2024-03-09 08:46 | Emergency (ER) | payer OTHER ==
[2024-03-09] MEDS: Sodium Chloride 0.9% 10 ML Syringe FLUSH PRN (09:17)
[2024-03-09] MEDS: Iopamidol 755 Mg/ML 100 ML Bottle IVPUSH ONE (09:17)
[2024-03-09] MEDS: Sodium Chloride 0.9% 45 ML IV SCH (09:17)
[2024-03-09 09:22] LABS: BASOPHILS PERCENT AUTO 0.5 % (0.0-1.0); EOSINOPHILS ABSOLUTE AUTO 0.3 K/mm3 (0.0-0.4); HEMATOCRIT 46.8 % (37.0-47.0); HEMOGLOBIN 14.8 gm/dl (12.0-16.0); IMMATURE GRAN ABSOLUTE AUTO 0.03 K/mm3 (0.00-0.05); IMMATURE GRAN PERCENT AUTO 0.4 % (0.0-0.4); LYMPHOCYTES ABSOLUTE AUTO 1.7 K/mm3 (1.0-4.8); LYMPHOCYTES PERCENT AUTO 21.8 % (24.0-44.0); MEAN CORPUSCULAR HEMOGLOBIN 28.5 pg (28.0-32.0); MEAN CORPUSCULAR HGB CONC 31.6 g/dl (32.0-36.0); MEAN PLATELET VOLUME 9.7 fl (9.4-12.3); MONOCYTES ABSOLUTE AUTO 0.7 K/mm3 (0.0-0.8); MONOCYTES PERCENT AUTO 9.5 % (0.0-8.0); NEUTROPHILS ABSOLUTE AUTO 4.8 K/mm3 (1.8-7.7); NEUTROPHILS PERCENT AUTO 63.8 % (41.0-71.0); PLATELET COUNT,PLT 264 K/mm3 (150-400); WHITE BLOOD CELL COUNT,WBC 7.56 K/mm3 (3.9-11.3)
[2024-03-09 09:46] LABS: A/G RATIO 0.8 (1-2); ALBUMIN 3.5 g/dl (3.4-5.0); ANION GAP 10.3 (5-15); BILIRUBIN TOTAL 0.4 mg/dL (0.2-1.0); BUN/CREATININE RATIO 24.4 (14-18); CALCIUM 9.7 mg/dL (8.5-10.1); CREATININE 0.9 mg/dL (0.55-1.02); EST CRCL DRUG DOSING (CG) 68.29 mL/min; POTASSIUM,K 4.3 mEq/L (3.5-5.1); PROTEIN TOTAL,TP 7.9 g/dl (6.4-8.2)
[2024-03-09 10:24] LABS: PROTHROMBIN TIME 10.6 SECONDS (9.7-12.0)
[2024-03-09 10:26] LABS: PTT,PARTIAL THROMBOPLSTIN TIME 31.3 SECONDS (21.7-31.4)
[2024-03-09 12:11] VITALS: BP 145/75; PULSE 48
== END 2024-03-09 12:11 | disposition home or self-care (01) ==
LOC: JD.ED 08:46
DX: G45.9 Transient cerebral ischemic attack, unspecified (principal); I10 Essential (primary) hypertension; E78.00 Pure hypercholesterolemia, unspecified; I25.2 Old myocardial infarction; I48.91 Unspecified atrial fibrillation; K21.9 Gastro-esophageal reflux disease without esophagitis; E11.9 Type 2 diabetes mellitus without complications; E03.9 Hypothyroidism, unspecified; Z95.1 Presence of aortocoronary bypass graft; Z88.8 Allergy status to other drugs, medicaments and biological substances; Z88.0 Allergy status to penicillin; Z79.82 Long term (current) use of aspirin; Z79.899 Other long term (current) drug therapy; Z79.84 Long term (current) use of oral hypoglycemic drugs; Z79.01 Long term (current) use of anticoagulants
CPT/HCPCS: 36415; 70450; 70496; 70498; 70551; 80053; 82947; 84484; 85025; 85610; 85730; 93005; 93246; 99284; J3490; Q9967; 93010

== ENCOUNTER 2024-03-16 08:14 | Emergency (ER) | payer OTHER ==
[2024-03-16 08:58] LABS: BASOPHILS ABSOLUTE AUTO 0.1 K/mm3 (0.0-0.2); BASOPHILS PERCENT AUTO 0.7 % (0.0-1.0); EOSINOPHILS ABSOLUTE AUTO 0.4 K/mm3 (0.0-0.4); EOSINOPHILS PERCENT AUTO 5.1 % (0.0-6.0); HEMATOCRIT 47.4 % (37.0-47.0); HEMOGLOBIN 14.9 gm/dl (12.0-16.0); IMMATURE GRAN ABSOLUTE AUTO 0.03 K/mm3 (0.00-0.05); IMMATURE GRAN PERCENT AUTO 0.4 % (0.0-0.4); LYMPHOCYTES ABSOLUTE AUTO 1.4 K/mm3 (1.0-4.8); LYMPHOCYTES PERCENT AUTO 19.8 % (24.0-44.0); MEAN CORPUSCULAR HEMOGLOBIN 28.3 pg (28.0-32.0); MEAN CORPUSCULAR HGB CONC 31.4 g/dl (32.0-36.0); MEAN CORPUSCULAR VOLUME 90.1 fl (83.0-99.0); MEAN PLATELET VOLUME 9.6 fl (9.4-12.3); MONOCYTES ABSOLUTE AUTO 0.6 K/mm3 (0.0-0.8); MONOCYTES PERCENT AUTO 8.8 % (0.0-8.0); NEUTROPHILS ABSOLUTE AUTO 4.7 K/mm3 (1.8-7.7); NEUTROPHILS PERCENT AUTO 65.2 % (41.0-71.0); PLATELET COUNT,PLT 249 K/mm3 (150-400); RED BLOOD CELL COUNT 5.26 M/mm3 (4.10-5.30); WHITE BLOOD CELL COUNT,WBC 7.24 K/mm3 (3.9-11.3)
[2024-03-16 09:27] LABS: INR 1.02; PROTHROMBIN TIME 10.8 SECONDS (9.7-12.0)
[2024-03-16 09:28] LABS: A/G RATIO 0.8 (1-2); ALBUMIN 3.3 g/dl (3.4-5.0); ANION GAP 11.5 (5-15); BILIRUBIN TOTAL 0.5 mg/dL (0.2-1.0); CALCIUM 9.5 mg/dL (8.5-10.1); EST CRCL DRUG DOSING (CG) 55.27 mL/min; POTASSIUM,K 4.5 mEq/L (3.5-5.1); PROTEIN TOTAL,TP 7.7 g/dl (6.4-8.2); PTT,PARTIAL THROMBOPLSTIN TIME 33.3 SECONDS (21.7-31.4)
[2024-03-16 11:10] VITALS: BP 112/51; PULSE 55
== END 2024-03-16 11:00 | disposition home or self-care (01) ==
LOC: JD.ED 08:14
DX: G45.9 Transient cerebral ischemic attack, unspecified (principal); I10 Essential (primary) hypertension; I25.10 Atherosclerotic heart disease of native coronary artery without angina pectoris; I25.2 Old myocardial infarction; E11.9 Type 2 diabetes mellitus without complications; E03.9 Hypothyroidism, unspecified; E66.9 Obesity, unspecified; Z90.49 Acquired absence of other specified parts of digestive tract; Z79.82 Long term (current) use of aspirin; Z79.899 Other long term (current) drug therapy; Z79.890 Hormone replacement therapy; Z79.84 Long term (current) use of oral hypoglycemic drugs; Z88.8 Allergy status to other drugs, medicaments and biological substances; Z88.0 Allergy status to penicillin; Z68.41 Body mass index [BMI] 40.0-44.9, adult
CPT/HCPCS: 36415; 70450; 70450-26; 80053; 82947; 84484; 85025; 85610; 85730; 93005; 93010; 99284; 99285